=== PATIENT | male | born 1970 | race Hispanic/Latino ===

== ENCOUNTER → 2023-09-20 | Outpatient (CLI) | payer OTHER | END | disposition home or self-care (01) | LOC: RAH 08:14 | DX: K80.20 Calculus of gallbladder without cholecystitis without obstruction (principal); K76.0 Fatty (change of) liver, not elsewhere classified | CPT/HCPCS: 76705 ==

== ENCOUNTER 2024-08-13 08:11 | Day surgery (SDC) | payer OTHER ==
[2024-08-11 11:30] LABS: BASOPHILS # (AUTO) 0.05 K/uL (0.00-0.20); BASOPHILS % (AUTO) 0.8 % (0.0-5.0); EOSINOPHILS # (AUTO) 0.17 K/uL (0.00-0.70); EOSINOPHILS % (AUTO) 2.9 % (0.0-8.0); HEMATOCRIT 42.4 % (42-54); IMMATURE GRANULOCYTE ABSOLUTE 0.01 K/uL (0-1); LYMPHOCYTES # (AUTO) 2.5 K/uL (1.0-4.8); LYMPHOCYTES % (AUTO) 42.5 % (21.0-51.0); MEAN CORPUSCULAR HEMOGLOBIN 28.9 pg (27.0-33.0); MEAN CORPUSCULAR HGB CONC 33.3 g/dL (32.0-36.0); MEAN CORPUSCULAR VOLUME 86.9 fL (79-99); MONOCYTES # (AUTO) 0.5 K/uL (0.1-1.0); NEUTROPHILS # (AUTO) 2.6 K/uL (1.8-7.7); NEUTROPHILS % (AUTO) 44.6 % (40.0-77.0); PLATELET COUNT (AUTO) 143 K/uL (130-400); RED BLOOD CELL COUNT(AUTO) 4.88 MIL/uL (4.50-6.20); WHITE BLOOD COUNT (AUTO) 5.9 K/uL (4.8-10.8)
[2024-08-11 11:37] LABS: CREATININE 1.4 mg/dL (0.5-1.3); POTASSIUM 3.7 mmol/L (3.5-5.1)
[2024-08-11 11:39] LABS: INR 1.04 (0.85-1.15)
[2024-08-11 11:40] LABS: PARTIAL THROMBOPLASTIN TIME 28.6 SEC (26.3-35.5)
--- NOTE | 2024-08-11 11:47 | EKG ---
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
[2024-08-11 12:01] VITALS: BP 115/65; PULSE 71; RESP 18; TEMP 97.3
[2024-08-13] VITALS (13 sets, daily range): BP systolic 128–146; BP diastolic 70–92; PULSE 70–92; RESP 14–20; TEMP 97.4–97.9
[~2024-08-13] VITALS: Ht 182.9 cm; Wt 143.8 kg
[~2024-08-13 08:11] MED LIST: ASPI-1443 PO; ATOR40TA71 PO; CHLO25TA3 PO; EMPA25TA PO; GEMF600T89 PO; INS7030 SQ; LISI40TA9 PO; METO-409 PO; TIRZ10PE SQ
[2024-08-13] MEDS: 0.9%NACL 1000ML 1,000 ML IV ONE (08:59)
[2024-08-13] MEDS: metRONIDazole 500MG/100ML BAG 100 ML ONE (09:07)
[2024-08-13] MEDS: ceFAZolin SODIUM 2 GM VIAL ONE (09:07)
[2024-08-13] MEDS ORDERED: LIDOCAINE HCL MPF 1% 5ML VIAL ONE (09:48)
[2024-08-13] MEDS ORDERED: proPOFol 10 MG/ML 20ML VIAL IV ONE (09:48)
[2024-08-13] MEDS ORDERED: MIDAZOLAM HCL 1 MG/ML 2ML VIAL ONE (09:48)
[2024-08-13] MEDS ORDERED: SUCCINYLCHOLINE CHLORIDE 20 MG/ML 10 ML VIAL ONE (09:48)
[2024-08-13] MEDS ORDERED: rocuRONium bROMide 10MG/1ML 5ML VL ONE ×2 (09:48→10:36)
[2024-08-13] MEDS ORDERED: FENTanyl CITRate PF 50 MCG/1 ML 2ML VIAL ONE (09:48)
[2024-08-13] MEDS: INDOCYANINE GREEN 25 MG VIAL IJ ONE (09:55)
[2024-08-13] MEDS ORDERED: ondanSETRON 4MG INJ ONE (10:11)
[2024-08-13] MEDS ORDERED: dexaMETHasone SOD PHOSPHATE 4 MG/ML 1ML VIAL ONE (10:11)
[2024-08-13] MEDS: BUPIvacaine/PF 0.25% 30ML VIAL IJ ONE (10:26)
[2024-08-13] MEDS ORDERED: GLYCOPYRROLATE 0.2 MG/ML 5 ML VIAL ONE (11:31)
[2024-08-13] MEDS ORDERED: NEOSTIGMINE METHYLSULFATE 1MG/ML IV ONE (11:32)
--- NOTE | 2024-08-13 12:21 | OP ---
Operative Note: DATE OF PROCEDURE: 08/13/24 SURGEON: ERIK TATE MD BUSINESS INFO CONSULTANT: [Please review operative record] ANESTHESIA: [General and local] ANESTHESIOLOGIST/MATERIALS ANALYST: [Please review operative record] PREOPERATIVE DIAGNOSIS: [Symptomatic cholelithiasis] POSTOPERATIVE DIAGNOSIS: [Symptomatic cholelithiasis, fatty liver with possible cirrhosis] SYNOPSIS: [ICG green cholangiogram appropriately identifying cystic duct. Visualization of hepatic and bile ducts. No intraductal filling defects appreciated. No ductal dilatation. Fatty liver infiltration with nodular appearance concerning for cirrhosis.] PROCEDURE: [1. Robotic assisted laparoscopic cholecystectomy. 2. ICG green cholangiography. 3. Laparoscopic-assisted percutaneous core needle liver biopsy] ESTIMATED BLOOD LOSS: [60 cc] INDICATIONS: [Patient is a 53-year-old male with chronic right upper quadrant abdominal pain. Abdominal ultrasound showed gallstones. Recommendation was given for cholecystectomy as patient failed conservative management with dietary changes in medications. Risks, benefits, alternatives were discussed with the patient. All questions were answered. Patient agreed to proceed] DESCRIPTION OF PROCEDURE: [After appropriate consent was obtained, the patient was brought into the operating room and placed in supine position on the operating table. SCDs were placed, preop antibiotics were given. Patient underwent induction of general anesthesia, endotracheal intubation. Patient was then prepped and draped in usual sterile fashion. Time-out was performed. Through a left subcostal incision, Veress needle was inserted into the peritoneal cavity. Insufflation was allowed to 12 mmHg. Through an 8 mm supraumbilical incision, laparoscope and trocar were placed into the peritoneal cavity using Optiview. Veress needle and this vicinity were examined and no signs of injury. Rest of my trocars were all placed under direct visualization. Patient was positioned in reverse Trendelenburg at 20. Upon evaluation of the liver, it appeared nodular with fatty infiltration. We decided to performed a laparoscopic-assisted core needle liver biopsy. Two samples were obtained. Puncture site on the liver was cauterized using hook electrocautery. The Marcial was docked. Upon evaluation of the gallbladder, it appeared mildly inflamed and distended. There were omental adhesions that were taken down with a combination of blunt and hook electrocautery dissection. Once gallbladder was isolated, it was retracted cephalad and dissection was undertaken with hook electrocautery and blunt dissection. The infundibulum was grasped and retracted medially and laterally in order to expose Calot's triangle. Dissection was possible with again blunt and hook electrocautery. IC green cholangiography showed no abnormalities, we appropriately identified the cystic duct, there was no ductal dilatation. Hepatic and bile duct were also identified. Cystic duct was clipped as close to the gallbladder one time and on the cystic duct 2 times. Cystic duct was sharply divided with scissors. With two clips staying behind. Cystic artery was very small, it was cauterized with bipolar and sharply divided. The gallbladder was then dissected off the gallbladder fossa using bipolar energy. Once removed from the gallbladder fossa hemostasis was obtained with bipolar energy. Gallbladder was placed in Endo-Catch bag. The echoBase robot was undocked at this time. Gallbladder specimen was removed through an 8 mm trocar. Final inspection revealed adequate hemostasis, no concerns leakage. Port fascia through which the gallbladder was removed was closed with 0 Vicryl suture through a suture Passer. Counts were correct at the end of the case. Abdomen was deflated. All instruments were rem samm. The skin incisions were closed with 4-0 Monocryl. Dermabond was applied over the incisions. Patient tolerated the procedure well. Patient was transferred to recovery in good condition] ERIK TATE MD Aug 13, 2024 12:20
--- NOTE | 2024-08-13 12:24 | DS ---
Discharge Summary Hospital Course Patient is a 54-year-old male who was admitted from the outpatient setting for elective robotic assisted laparoscopic cholecystectomy and liver biopsy on 08/13/2024 due to symptomatic cholelithiasis the fatty liver infiltration concerning for liver cirrhosis. Patient tolerated the procedure well. No issues during the procedure. Patient with no major concerns at this time. Remains hemodynamically stable, afebrile. Aerating well on room air. Normal sinus rhythm. Abdomen is benign, incisions clean dry and intact Patient instructed to avoid lifting more than 20 lb for a month, advance diet as tolerated. Postop meds have been submitted to the patient's pharmacy, postop follow up already in place. Okay to shower 24 hours after the procedure. Return precautions given including fevers of 101.5 or higher worsening abdominal pain, intractable nausea and vomiting or just any concerns about his overall health. ERIK TATE MD Aug 13, 2024 12:24
--- NOTE | 2024-08-13 13:37 | NUR ---
Full and complete discharge instructions given to Patient and Family both verbally and in writing. All questions answered. Tolerating PO fluids well. Voiced understanding to Surgical Laparoscopic procedure and follow up. PIV removed with catheter tip intact. Voided in bathroom large amount. All Lap sites clean, dry and intact. W\C to POV with Family to home.
== END 2024-08-13 13:25 | disposition home or self-care (01) ==
LOC: DAH 08:11
PROVIDERS: ATTEND Surgery
DX: K80.10 Calculus of gallbladder with chronic cholecystitis without obstruction (principal); K75.81 Nonalcoholic steatohepatitis (NASH); K74.60 Unspecified cirrhosis of liver; E11.9 Type 2 diabetes mellitus without complications; N19 Unspecified kidney failure; I10 Essential (primary) hypertension; E66.01 Morbid (severe) obesity due to excess calories; Z79.899 Other long term (current) drug therapy; Z79.82 Long term (current) use of aspirin; Z79.84 Long term (current) use of oral hypoglycemic drugs; Z98.890 Other specified postprocedural states; Z86.0100 Personal history of colon polyps, unspecified; Z68.41 Body mass index [BMI] 40.0-44.9, adult
CPT/HCPCS: 47379; 47563; S2900; 36415; 80048; 82948; 85025; 85610; 85730; 86850; 86900; 86901; 88304; 88307; 88313; 93005; J0330; J1100; J2250; J2405; J2704; J2710; J3010; J3490; J7030; A4215; A4221; A4222; A4223; A4600; A4649; A4663; A6251; A6260; J0665; J0690